=== PATIENT | female | born 1970 | race Caucasian/White ===

== ENCOUNTER 2021-10-16 16:32 | Emergency (ER) | payer MEDICAID ==
[~2021-10-16] VITALS: Ht 149.9 cm; Wt 45.0 kg
[2021-10-16 18:52] LABS: Urine Bacteria NONE SEEN /hpf (None Seen); Urine Blood Negative /uL (Negative); Urine Specific Gravity 1.021 (1.001-1.035); Urine WBC 5 /hpf (0 - 5)
[2021-10-16 19:32] LABS: Hematocrit 41.2 % (36.0-46.0); Hemoglobin 13.7 g/dL (12.2-16.2); Mean Corpuscular Hemoglobin 33.5 pg (28.0-32.0); Mean Corpuscular Hgb Conc. 33.4 g/dL (32.0-36.0); Mean Corpuscular Volume 100.4 fL (80.0-100.0); Red Cell Distribution Width 12.6 % (11.8-14.3); White Blood Cell 8.5 10^3/uL (4.4-10.8)
[2021-10-16 19:35] LABS: Band Neutrophils % (manual) 0; Basophils % (manual) 0 (0.0-2.0); Blast Cells 0; Eosinophils % (manual) 0 (0-7); Metamyelocytes % 0; Myelocytes % 0; Promyelocytes % 0; Reactive Lymphocytes 0
[2021-10-16 19:56] LABS: Potassium 3.9 mmol/L (3.5-5.1)
[2021-10-16 20:02] LABS: Albumin 3.4 g/dL (3.4-5.0); BUN/Creatinine Ratio 36.8; Bilirubin, Total 0.2 mg/dL (0.2-1.0); Calcium 8.4 mg/dL (8.5-10.1); Total Protein 7.4 g/dL (6.4-8.2)
[2021-10-16 22:11] LABS: Lymphocytes % (manual) 52 (10.0-50.0); Monocytes % (manual) 4 (0-12)
[2021-10-16] MEDS ORDERED: SODIUM CHLORIDE 0.9% 1,000 ML IV ONE (23:15)
[2021-10-17 00:59] VITALS: BP 139/76
== END 2021-10-17 03:18 | disposition home or self-care (01) ==
LOC: ER 16:32
DX: R42 Dizziness and giddiness (principal)
CPT/HCPCS: 36415; 80053; 80164; 80185; 80201; 81001; 82553; 83605; 84484; 85007; 85027; 93005

== ENCOUNTER 2022-02-07 20:01 | Emergency (ER) | payer MEDICAID ==
[~2022-02-07] VITALS: Ht 152.4 cm; Wt 70.0 kg
[2022-02-07 20:45] LABS: Hematocrit 41.5 % (36.0-46.0); Hemoglobin 14.3 g/dL (12.2-16.2); Mean Corpuscular Hemoglobin 33.4 pg (28.0-32.0); Mean Corpuscular Hgb Conc. 34.6 g/dL (32.0-36.0); Mean Corpuscular Volume 96.7 fL (80.0-100.0); Red Blood Cells 4.29 10^6/uL (4.0-5.20)
[2022-02-07 20:49] LABS: Basophils % (manual) 0 (0.0-2.0); Blast Cells 0; Eosinophils % (manual) 0 (0-7); Metamyelocytes % 0; Myelocytes % 0; Promyelocytes % 0; Reactive Lymphocytes 0
[2022-02-07 21:02] LABS: Albumin 3.9 g/dL (3.4-5.0); Calcium 8.6 mg/dL (8.5-10.1); Potassium 3.7 mmol/L (3.5-5.1)
[2022-02-07 21:06] LABS: BUN/Creatinine Ratio 25.4; Bilirubin, Total 0.2 mg/dL (0.2-1.0); Total Protein 7.4 g/dL (6.4-8.2)
[2022-02-07] MEDS ORDERED: LEVE500T32 PO (21:12)
[2022-02-07 21:27] LABS: Urine Bacteria NONE SEEN /hpf (None Seen); Urine Blood Negative /uL (Negative); Urine Specific Gravity 1.012 (1.001-1.035); Urine WBC 4 /hpf (0 - 5)
[2022-02-07 21:40] LABS: Alcohol, Urine < 3.0 mg/dL (0-10); Amphetamine Screen, Urine NEGATIVE (NEGATIVE); Barbiturate Scree,Urine NEGATIVE (NEGATIVE); Benzodiazephine Screen, Urine NEGATIVE (NEGATIVE); Cannabinoid Screen, Urine NEGATIVE (NEGATIVE); Cocaine Screen, Urine NEGATIVE (NEGATIVE); Opiate Scree,Urine NEGATIVE (NEGATIVE); Phencyclidine Screen, Urine NEGATIVE (NEGATIVE)
[2022-02-07 21:48] LABS: Band Neutrophils % (manual) 4; Lymphocytes % (manual) 66 (10.0-50.0); Monocytes % (manual) 4 (0-12)
[2022-02-07 22:02] VITALS: BP 151/75
== END 2022-02-07 22:06 | disposition home or self-care (01) ==
LOC: ER 20:01 → EDBD 20:01 → EDUNIT# 20:01 → ER 22:03
DX: R56.9 Unspecified convulsions (principal)
CPT/HCPCS: 36415; 70450; 80053; 80307; 81001; 85007; 85027; 96365; 99284; J1953; J7060

== ENCOUNTER 2022-06-12 05:55 | Inpatient (IN) | payer MEDICAID ==
[~2022-06-12] VITALS: Ht 160 cm; Wt 54.8 kg
[~2022-06-12 05:55] MED LIST: LEVE500T32 PO
[2022-06-12 06:51] LABS: Basophils # (auto) 0 10 ^3/uL (0-0.2); Basophils % (auto) 0.4 % (0.0-2.0); Lymphocytes # (auto) 1.4 10 ^3/uL (0.4-5.4); Monocytes # (auto) 0.3 10 ^3/uL (0-1.3); Neutrophils # (auto) 5.3 10 ^3/uL (1.6-8.6)
[2022-06-12 06:54] LABS: Eosinophils # (auto) 0 10 ^3/uL (0-0.8); Eosinophils % (auto) 0.6 % (0.0-7.0); Hematocrit 44.2 % (36.0-46.0); Hemoglobin 15.4 g/dL (12.2-16.2); Lymphocytes % (auto) 20.2 % (10.0-50.0); Mean Corpuscular Hemoglobin 34.9 pg (28.0-32.0); Mean Corpuscular Hgb Conc. 34.9 g/dL (32.0-36.0); Mean Corpuscular Volume 100.1 fL (80.0-100.0); Monocytes % (auto) 4.8 % (0.0-12.0); Red Blood Cells 4.42 10^6/uL (4.0-5.20); Red Cell Distribution Width 12.5 % (11.8-14.3); White Blood Cell 7.2 10^3/uL (4.4-10.8)
[2022-06-12 07:08] LABS: Albumin 3.6 g/dL (3.4-5.0); BUN/Creatinine Ratio 20.5 (10.0-20.0); Potassium 3.8 mmol/L (3.5-5.1)
[2022-06-12 07:10] LABS: Bilirubin, Total 0.2 mg/dL (0.2-1.0); Total Protein 7.9 g/dL (6.4-8.2)
[2022-06-12 09:06] LABS: Urine Bacteria NONE SEEN /hpf (None Seen); Urine Blood Negative /uL (Negative); Urine Mucus FEW (None Seen); Urine Specific Gravity 1.016 (1.001-1.035); Urine WBC 2 /hpf (0 - 5)
[2022-06-12 09:15] LABS: Alcohol, Urine < 3.0 mg/dL (0-10); Amphetamine Screen, Urine NEGATIVE (NEGATIVE); Barbiturate Scree,Urine NEGATIVE (NEGATIVE); Benzodiazephine Screen, Urine POSITIVE (NEGATIVE); Cannabinoid Screen, Urine NEGATIVE (NEGATIVE)
[2022-06-12 09:22] LABS: Cocaine Screen, Urine NEGATIVE (NEGATIVE); Opiate Scree,Urine NEGATIVE (NEGATIVE); Phencyclidine Screen, Urine NEGATIVE (NEGATIVE)
[2022-06-12] MEDS ORDERED: PHE100C PO (11:29)
[2022-06-12] MEDS ORDERED: DIVA500T13 PO (11:29)
[2022-06-12] MEDS ORDERED: MORPHINE SULFATE INJ 2 MG/ml SYRG IV PRN (11:30)
[2022-06-12] MEDS ORDERED: HYDROcodone-ACET 5/325MG TAB PO PRN (11:30)
[2022-06-12] MEDS ORDERED: ONDANSETRON HCL 4 MG/2 ML VIAL IV PRN (11:30)
[2022-06-12] MEDS ORDERED: ACETAMINOPHEN 325 MG TAB PO PRN (11:30)
[2022-06-12] MEDS ORDERED: DOCUSATE SOD 100 MG CAP PO PRN (11:30)
[2022-06-12] MEDS ORDERED: NITROGLYCERIN 0.4 MG SL TAB SL PRN (11:30)
[2022-06-12] MEDS: SODIUM CHLOR 0.9% PF (SALINE LOCK) 10ML VIAL/SYR IV SCH ×2 (14:35→22:31)
[2022-06-12] MEDS: PHENYTOIN SODIUM 100 MG CAP PO SCH ×2 (14:44→22:31)
[2022-06-12] MEDS ORDERED: LORazepam 2MG/ML-1ML VIAL IV PRN (20:45)
[2022-06-12 22:56] VITALS: BP 148/75
[2022-06-13 05:00] VITALS: BP 143/75
[2022-06-13] MEDS: PHENYTOIN SODIUM 100 MG CAP PO SCH ×3 (05:09→22:47)
[2022-06-13] MEDS: SODIUM CHLOR 0.9% PF (SALINE LOCK) 10ML VIAL/SYR IV SCH ×3 (05:10→22:51)
[2022-06-13 06:12] LABS: Basophils # (auto) 0.1 10 ^3/uL (0-0.2); Eosinophils # (auto) 0 10 ^3/uL (0-0.8); Eosinophils % (auto) 0.1 % (0.0-7.0); Lymphocytes # (auto) 3.7 10 ^3/uL (0.4-5.4); Lymphocytes % (auto) 31.8 % (10.0-50.0)
[2022-06-13 06:15] LABS: Basophils % (auto) 0.7 % (0.0-2.0); Hematocrit 45.5 % (36.0-46.0); Hemoglobin 15.8 g/dL (12.2-16.2); Mean Corpuscular Hemoglobin 34.2 pg (28.0-32.0); Mean Corpuscular Hgb Conc. 34.7 g/dL (32.0-36.0); Mean Corpuscular Volume 98.7 fL (80.0-100.0); Monocytes # (auto) 0.4 10 ^3/uL (0-1.3); Monocytes % (auto) 3.8 % (0.0-12.0); Neutrophils # (auto) 7.5 10 ^3/uL (1.6-8.6); Neutrophils % (auto) 63.6 % (37.0-80.0); Nucleated Red Blood Cells % 0.1 %; Red Cell Distribution Width 12.4 % (11.8-14.3); White Blood Cell 11.8 10^3/uL (4.4-10.8)
[2022-06-13 06:26] LABS: Potassium 4.2 mmol/L (3.5-5.1)
[2022-06-13 06:33] LABS: Albumin 3.7 g/dL (3.4-5.0); BUN/Creatinine Ratio 29.4 (10.0-20.0); Bilirubin, Total 0.4 mg/dL (0.2-1.0); Calcium 9.1 mg/dL (8.5-10.1); Total Protein 8.2 g/dL (6.4-8.2)
[2022-06-13 08:00] VITALS: BP 134/74
[2022-06-13] MEDS ORDERED: PANTOPRAZOLE 40 MG/10 ML VIAL INJ IV SCH (10:00)
[2022-06-13 12:00] VITALS: BP 139/82
[2022-06-13 16:00] VITALS: BP 124/65
[2022-06-13 22:00] VITALS: BP 120/70
[2022-06-14 05:00] VITALS: BP 140/65
[2022-06-14] MEDS: PHENYTOIN SODIUM 100 MG CAP PO SCH ×3 (06:07→21:42)
[2022-06-14] MEDS: SODIUM CHLOR 0.9% PF (SALINE LOCK) 10ML VIAL/SYR IV SCH ×3 (06:10→22:00)
[2022-06-14 08:00] VITALS: BP 135/71
[2022-06-14 11:15] VITALS: BP 135/71
[2022-06-14 12:00] VITALS: BP 138/76
[2022-06-14 16:00] VITALS: BP 137/71
[2022-06-14 22:00] VITALS: BP 154/82
[2022-06-15 05:17] VITALS: BP 134/59
[2022-06-15] MEDS: SODIUM CHLOR 0.9% PF (SALINE LOCK) 10ML VIAL/SYR IV SCH (05:31)
[2022-06-15] MEDS: PHENYTOIN SODIUM 100 MG CAP PO SCH (05:31)
[2022-06-15 08:30] VITALS: BP 114/68
== END 2022-06-15 08:48 | disposition home or self-care (01) | DRG 53 ==
LOC: ER 05:55 → EDBD 05:55 → TELE 11:28 → TELE-CENTR 21:45
PROVIDERS: ADMIT Nurse Practitioner Family; ATTEND Internal Medicine
DX: G40.409 Other generalized epilepsy and epileptic syndromes, not intractable, without status epilepticus (principal); Z79.899 Other long term (current) drug therapy; Z82.49 Family history of ischemic heart disease and other diseases of the circulatory system; Z83.3 Family history of diabetes mellitus
CPT/HCPCS: 36415; 70450; 80053; 80164; 80185; 80307; 81001; 82306; 83880; 84484; 84702; 85025; C9113; G0378

== ENCOUNTER 2022-07-25 16:19 | Inpatient (IN) | payer MEDICAID ==
[~2022-07-25] VITALS: Ht 165.1 cm; Wt 55.5 kg
[~2022-07-25 16:19] MED LIST changes: +DIVA500T13 PO; -LEVE500T32 PO; +PHEN1CAP60 PO
[2022-07-25] MEDS ORDERED: LORazepam 2MG/ML-1ML VIAL ONE (16:35)
[2022-07-25] MEDS ORDERED: LORazepam 2MG/ML-1ML VIAL IV ONE (16:45)
[2022-07-25 17:35] LABS: Basophils # (auto) 0 10 ^3/uL (0-0.2); Basophils % (auto) 0.4 % (0.0-2.0); Eosinophils # (auto) 0 10 ^3/uL (0-0.8); Eosinophils % (auto) 0.9 % (0.0-7.0); Hematocrit 41.2 % (36.0-46.0); Lymphocytes % (auto) 37.9 % (10.0-50.0); Mean Corpuscular Hemoglobin 33.8 pg (28.0-32.0); Mean Corpuscular Hgb Conc. 33.8 g/dL (32.0-36.0); Mean Corpuscular Volume 99.9 fL (80.0-100.0); Monocytes # (auto) 0.4 10 ^3/uL (0-1.3); Monocytes % (auto) 7.6 % (0.0-12.0); Neutrophils # (auto) 2.8 10 ^3/uL (1.6-8.6); Neutrophils % (auto) 53.2 % (37.0-80.0); Nucleated Red Blood Cells % 0.1 %; Red Blood Cells 4.13 10^6/uL (4.0-5.20); Red Cell Distribution Width 12.2 % (11.8-14.3); White Blood Cell 5.2 10^3/uL (4.4-10.8)
[2022-07-25] MEDS ORDERED: ATOG60TA PO (17:54)
[2022-07-25 18:18] LABS: Albumin 3.7 g/dL (3.4-5.0); Anion Gap 4 (5-15); Blood Alcohol < 3.0 mg/dL (0-5); Blood Urea Nitrogen 16 mg/dL (7-18); Calcium 8.2 mg/dL (8.5-10.1); Carbon Dioxide 30 mmol/L (21-32); Chloride 107 mmol/L (98-107); Glucose 93 mg/dL (74-106); Magnesium 2.2 mg/dL (1.6-2.6); Potassium 4.2 mmol/L (3.5-5.1); Sodium 141 mmol/L (136-145)
[2022-07-25 18:23] LABS: Alanine Aminotransferase 40 U/L (13-56); Alkaline Phosphatase 70 U/L (45-117); Aspartate Aminotransferase 22 U/L (15-37); BUN/Creatinine Ratio 25.4 (10.0-20.0); Bilirubin, Total 0.2 mg/dL (0.2-1.0); Creatine Kinase IFCC 58 U/L (26-192); GFR African American 129 mL/min; GFR Non-African American 106 mL/min; Total Protein 7.3 g/dL (6.4-8.2)
[2022-07-25] MEDS ORDERED: ACETAMINOPHEN 325 MG TAB PO PRN (21:30)
[2022-07-25] MEDS ORDERED: MORPHINE SULFATE INJ 2 MG/ml SYRG IV PRN (21:30)
[2022-07-25] MEDS ORDERED: NITROGLYCERIN 0.4 MG SL TAB SL PRN (21:30)
[2022-07-25 21:50] LABS: Urine Bacteria NONE SEEN /hpf (None Seen); Urine Blood Negative /uL (Negative); Urine Specific Gravity 1.014 (1.001-1.035); Urine WBC 1 /hpf (0 - 5)
[2022-07-25] MEDS ORDERED: LACTULOSE 20Gm/30ML SOLN PO ONE ×2 (22:00→22:30)
[2022-07-25] MEDS: SODIUM CHLORIDE 0.9% 1,000 ML IV SCH (22:30)
[2022-07-26 04:16] VITALS: BP 118/75
[2022-07-26] MEDS: SODIUM CHLORIDE 0.9% 1,000 ML IV SCH ×2 (05:50→16:52)
[2022-07-26 06:31] LABS: Basophils # (auto) 0 10 ^3/uL (0-0.2); Eosinophils # (auto) 0 10 ^3/uL (0-0.8); Monocytes # (auto) 0.6 10 ^3/uL (0-1.3); Neutrophils # (auto) 4.6 10 ^3/uL (1.6-8.6)
[2022-07-26 06:34] LABS: Basophils % (auto) 0.4 % (0.0-2.0); Eosinophils % (auto) 0.5 % (0.0-7.0); Hematocrit 40.5 % (36.0-46.0); Hemoglobin 14.1 g/dL (12.2-16.2); Lymphocytes # (auto) 2.7 10 ^3/uL (0.4-5.4); Lymphocytes % (auto) 34.5 % (10.0-50.0); Mean Corpuscular Hemoglobin 34.5 pg (28.0-32.0); Mean Corpuscular Hgb Conc. 34.9 g/dL (32.0-36.0); Mean Corpuscular Volume 98.8 fL (80.0-100.0); Neutrophils % (auto) 57.6 % (37.0-80.0); Red Cell Distribution Width 12.1 % (11.8-14.3); White Blood Cell 7.9 10^3/uL (4.4-10.8)
[2022-07-26 06:46] LABS: Calcium 8.5 mg/dL (8.5-10.1); Potassium 3.8 mmol/L (3.5-5.1)
[2022-07-26 06:51] LABS: Albumin 3.5 g/dL (3.4-5.0); BUN/Creatinine Ratio 20.3 (10.0-20.0); Bilirubin, Total 0.2 mg/dL (0.2-1.0); Total Protein 7.2 g/dL (6.4-8.2)
[2022-07-26 08:05] VITALS: BP 148/79
[2022-07-26 09:10] VITALS: BP 148/79
[2022-07-26] MEDS: LACTULOSE 20Gm/30ML SOLN PO SCH ×2 (09:44→23:10)
[2022-07-26] MEDS: ENOXAPARIN SOD 40 MG/0.4 ML SYRINGE SC SCH (09:44)
[2022-07-26 17:00] VITALS: BP 133/70
[2022-07-26] MEDS ORDERED: LORazepam 2MG/ML-1ML VIAL IV PRN (21:00)
[2022-07-26 22:00] VITALS: BP 132/78
[2022-07-26] MEDS: PHENYTOIN SODIUM 100 MG CAP PO SCH (23:10)
[2022-07-27 05:00] VITALS: BP 138/93
[2022-07-27] MEDS: SODIUM CHLORIDE 0.9% 1,000 ML IV SCH ×2 (05:17→08:03)
[2022-07-27] MEDS: PHENYTOIN SODIUM 100 MG CAP PO SCH (05:48)
[2022-07-27 08:00] VITALS: BP 144/81
[2022-07-27 09:00] VITALS: BP 144/81
[2022-07-27] MEDS ORDERED: QULIPTA 60 MG PO SCH (10:00)
[2022-07-27] MEDS: ENOXAPARIN SOD 40 MG/0.4 ML SYRINGE SC SCH (10:11)
[2022-07-27] MEDS: LACTULOSE 20Gm/30ML SOLN PO SCH (10:11)
[2022-07-27 10:39] VITALS: BP 144/81
== END 2022-07-27 12:20 | disposition home or self-care (01) | DRG 53 ==
LOC: EDBD 16:19 → EDUNIT# 16:19 → ER 16:19 → TELE 21:29 → TELE-EAST 07-26 03:40
PROVIDERS: ADMIT Nurse Practitioner Family; ATTEND Hospitalist
DX: G40.909 Epilepsy, unspecified, not intractable, without status epilepticus (principal); E72.20 Disorder of urea cycle metabolism, unspecified; G43.909 Migraine, unspecified, not intractable, without status migrainosus; R91.1 Solitary pulmonary nodule; Z79.899 Other long term (current) drug therapy; Z82.49 Family history of ischemic heart disease and other diseases of the circulatory system; Z83.3 Family history of diabetes mellitus
CPT/HCPCS: 36415; 70450; 71045; 80053; 80185; 80320; 81001; 82140; 82550; 83605; 83735; 83880; 84484; 84702; 85025; 87040; 93005; 96374; 97163; 99291; G0378; J7060

== ENCOUNTER 2022-10-15 17:17 | Inpatient (IN) | payer MEDICAID ==
[2022-10-15] VITALS (10 sets, daily range): BP systolic 123–143; BP diastolic 69–84; PULSE 94–113; RESP 18–20; TEMP 98.6–100.1; O2SAT 97–100
[~2022-10-15] VITALS: Ht 152.4 cm; Wt 54.6 kg
[~2022-10-15 17:17] MED LIST changes: +ATOG60TA PO
[2022-10-15] MEDS ORDERED: ETOMIDATE (2MG/ML) 20ML VIAL IV ONE ×2 (17:23→17:30)
[2022-10-15] MEDS ORDERED: MIDAZOLAM DRIP 50 mg/50mL 50 ML IV ONE (17:23)
[2022-10-15] MEDS ORDERED: SUCCINYLCHOLINE CHLORIDE 20 MG/ML 10ML VIAL IV ONE ×2 (17:23→17:30)
[2022-10-15] MEDS ORDERED: SODIUM CHLORIDE 0.9% 1,800 ML IV ONE (17:45)
[2022-10-15] MEDS: MIDAZOLAM DRIP 50 mg/50mL 50 ML IV SCH (17:54)
[2022-10-15] MEDS ORDERED: VANCOMYCIN 1GM/250ML 250 ML IV ONE (18:30)
[2022-10-15] MEDS ORDERED: PIPERACILLIN-TAZO 4.5GM 100 ML IV ONE (18:30)
[2022-10-15 18:38] LABS: Base Excess -1.9 mmol/L (-2.0-2.0)
[2022-10-15 18:52] LABS: Amphetamine Screen, Urine Neg (NEGATIVE)
[2022-10-15 18:53] LABS: Lactic Acid w/Reflex 3.9 mmol/L (0.4-2.0)
[2022-10-15 18:53] LABS: Barbiturate Scree,Urine Neg (NEGATIVE); Benzodiazephine Screen, Urine Pos (NEGATIVE); Cocaine Screen, Urine Neg (NEGATIVE)
[2022-10-15 18:54] LABS: Alanine Aminotransferase 65 U/L (7-40); Albumin 4.5 g/dL (3.2-4.8); Alkaline Phosphatase 66 U/L (46-116); Anion Gap 12.3 (5-15); Aspartate Aminotransferase 58 U/L (13-40); BUN/Creatinine Ratio 17.8 (10.0-20.0); Blood Urea Nitrogen 13 mg/dL (9-23); Calcium 9.3 mg/dL (8.5-10.1); Carbon Dioxide 22.7 mmol/L (20-30); Chloride 105 mmol/L (98-107); Glucose 118 mg/dL (74-106); Potassium 4.2 mmol/L (3.5-5.1); Sodium 140 mmol/L (136-145)
[2022-10-15 18:54] LABS: Cannabinoid Screen, Urine Neg (NEGATIVE); Opiate Scree,Urine Neg (NEGATIVE); Phencyclidine Screen, Urine Neg (NEGATIVE)
[2022-10-15 18:55] LABS: Bilirubin, Total 0.3 mg/dL (0.2-1.0); Total Protein 7.7 g/dL (5.7-8.2)
[2022-10-15 18:56] LABS: Basophils # (auto) 0 10 ^3/uL (0-0.2); Eosinophils # (auto) 0 10 ^3/uL (0-0.8); Eosinophils % (auto) 0.1 % (0.0-7.0); Lymphocytes # (auto) 0.6 10 ^3/uL (0.4-5.4); Monocytes # (auto) 0.5 10 ^3/uL (0-1.3)
[2022-10-15 19:00] LABS: Basophils % (auto) 0.4 % (0.0-2.0); Hemoglobin 14.3 g/dL (12.2-16.2); Lymphocytes % (auto) 6.5 % (10.0-50.0); Mean Corpuscular Hemoglobin 34.6 pg (28.0-32.0); Mean Corpuscular Hgb Conc. 34.9 g/dL (32.0-36.0); Mean Corpuscular Volume 99.1 fL (80.0-100.0); Monocytes % (auto) 5.2 % (0.0-12.0); Neutrophils # (auto) 7.9 10 ^3/uL (1.6-8.6); Neutrophils % (auto) 87.8 % (37.0-80.0); Nucleated Red Blood Cells % 0.2 %; Red Blood Cells 4.14 10^6/uL (4.0-5.20); Red Cell Distribution Width 12.4 % (11.8-14.3)
[2022-10-15 19:22] LABS: Urine Bacteria NONE SEEN /hpf (None Seen); Urine Blood Negative /uL (Negative); Urine Clarity Clear (Clear); Urine Color Colorless (Yellow); Urine Hyaline Cast FEW /lpf (0 - 2); Urine Mucus FEW (None Seen); Urine Protein, UAD 3+ (Negative); Urine Specific Gravity 1.016 (1.001-1.035); Urine Urobilinogen Normal (Negative); Urine WBC <1 /hpf (0 - 5)
[2022-10-15 19:26] LABS: Valproic Acid (Depakene) 74.7 ug/mL (50-100)
[2022-10-15] MEDS ORDERED: ASPirin 300 MG RECTAL SUPP PR ONE (19:30)
[2022-10-15 19:42] LABS: INR 1.09 (0.9-1.15); Prothrombin Time 11.4 sec (9.3-11.8)
[2022-10-15 20:40] LABS: Lipase 34 U/L (12-53)
[2022-10-15] MEDS ORDERED: LORazepam 2MG/ML-1ML VIAL IV PRN (20:45)
[2022-10-15] MEDS ORDERED: NITROGLYCERIN 0.4 MG SL TAB SL PRN (21:00)
[2022-10-15] MEDS ORDERED: MORPHINE SULFATE INJ 2 MG/ml SYRG IV PRN (21:00)
[2022-10-15] MEDS ORDERED: ENOXAPARIN SOD 60 MG/0.6 ML SYRINGE SC ONE (21:15)
[2022-10-15] MEDS ORDERED: DEXTROSE (50%) 50ML SYRG IV PRN (21:15)
[2022-10-15] MEDS: SODIUM CHL 0.9% IV SCH (21:33)
[2022-10-15] MEDS: PHENYTOIN DILANTIN IV SCH (21:33)
[2022-10-15] MEDS: VALPROATE INJ 500 MG in SODIUM CHL 0.9% 100 ML IV SCH (21:40)
[2022-10-15] MEDS: SODIUM CHLORIDE 0.9% 1,000 ML IV SCH (21:41)
[2022-10-15] MEDS: ENOXAPARIN SOD 60 MG/0.6 ML SYRINGE SC SCH (22:00)
[2022-10-15] MEDS ORDERED: ENOXAPARIN SOD 120 MG/0.8 ML SYRINGE SC SCH (22:00)
[2022-10-15] MEDS: IPRATROPIUM BROM 0.5 MG/2.5ML INH SOL NEB PRN (22:25)
[2022-10-15] MEDS: ALBUTEROL SULF 2.5 MG/0.5ML(0.5%) NEB SOLN NEB PRN (22:25)
[2022-10-16] VITALS (105 sets, daily range): BP systolic 104–151; BP diastolic 38–127; PULSE 86–120; RESP 14–28; TEMP 100–103.1; O2SAT 94–100
[2022-10-16] MEDS: MIDAZOLAM DRIP 50 mg/50mL 50 ML IV SCH ×4 (00:54→22:24)
[2022-10-16] MEDS: ACETAMINOPHEN 325 MG TAB PO PRN ×4 (01:09→21:58)
[2022-10-16] MEDS: ALBUTEROL SULF 2.5 MG/0.5ML(0.5%) NEB SOLN NEB PRN (02:03)
[2022-10-16] MEDS: IPRATROPIUM BROM 0.5 MG/2.5ML INH SOL NEB PRN (02:03)
[2022-10-16] MEDS: VALPROATE INJ 500 MG in SODIUM CHL 0.9% 100 ML IV SCH ×4 (02:42→21:09)
[2022-10-16 04:09] LABS: Basophils # (auto) 0.1 10 ^3/uL (0-0.2); Eosinophils # (auto) 0 10 ^3/uL (0-0.8); Monocytes # (auto) 1.3 10 ^3/uL (0-1.3); White Blood Cell 11.9 10^3/uL (4.4-10.8)
[2022-10-16 04:12] LABS: Basophils % (auto) 0.6 % (0.0-2.0); Eosinophils % (auto) 0.1 % (0.0-7.0); Hematocrit 44.1 % (36.0-46.0); Lymphocytes # (auto) 2.1 10 ^3/uL (0.4-5.4); Lymphocytes % (auto) 17.7 % (10.0-50.0); Mean Corpuscular Hemoglobin 34.6 pg (28.0-32.0); Mean Corpuscular Volume 101.6 fL (80.0-100.0); Monocytes % (auto) 10.8 % (0.0-12.0); Neutrophils # (auto) 8.4 10 ^3/uL (1.6-8.6); Neutrophils % (auto) 70.8 % (37.0-80.0); Nucleated Red Blood Cells % 0.1 %; Red Blood Cells 4.34 10^6/uL (4.0-5.20); Red Cell Distribution Width 12.4 % (11.8-14.3)
[2022-10-16 04:27] LABS: Alanine Aminotransferase 64 U/L (7-40); Alkaline Phosphatase 59 U/L (46-116); Anion Gap 10.5 (5-15); Aspartate Aminotransferase 79 U/L (13-40); Calcium 8.7 mg/dL (8.5-10.1); Carbon Dioxide 24.5 mmol/L (20-30); Chloride 103 mmol/L (98-107); Glucose 107 mg/dL (74-106); LDL Cholesterol 56 mg/dL (< 100); Potassium 3.7 mmol/L (3.5-5.1); Sodium 138 mmol/L (136-145); Triglycerides 101 mg/dL (< 150)
[2022-10-16 04:28] LABS: Albumin 4.4 g/dL (3.2-4.8); Bilirubin, Total 0.5 mg/dL (0.2-1.0); Cholesterol 163 mg/dL (< 200); HDL Cholesterol 84 mg/dL (40-59); Total Protein 7.8 g/dL (5.7-8.2)
[2022-10-16 04:31] LABS: BUN/Creatinine Ratio 7.7 (10.0-20.0); Blood Urea Nitrogen < 5 mg/dL (9-23)
[2022-10-16] MEDS: SODIUM CHL 0.9% IV SCH ×3 (04:44→20:32)
[2022-10-16] MEDS: PHENYTOIN DILANTIN IV SCH ×3 (04:44→20:32)
[2022-10-16] MEDS: InsuLIN REG 1unit/0.01ml Soln (100units/ml) SC SCH ×5 (06:00→23:59)
[2022-10-16] MEDS: ACCU-CHEK COMFORT CURVE STRIP VI SCH ×5 (06:16→23:59)
[2022-10-16] MEDS: SODIUM CHLORIDE 0.9% 1,000 ML IV SCH ×2 (06:34→10:45)
[2022-10-16 06:57] LABS: Base Excess 0.6 mmol/L (-2.0-2.0)
[2022-10-16] MEDS: PANTOPRAZOLE 40 MG/10 ML VIAL INJ IV SCH (09:45)
[2022-10-16] MEDS: ENOXAPARIN SOD 60 MG/0.6 ML SYRINGE SC SCH ×2 (09:45→10:00)
[2022-10-16] MEDS: levoFLOXacin 500MG 100 ML IV SCH (13:32)
[2022-10-16] MEDS ORDERED: IODIXANOL 320MG/ML 100ML BTL IV ONE (13:52)
[2022-10-16] MEDS ORDERED: LIDOCAINE 2%HCL (LOCAL ANESTH.) INJ 20ML MDV ONE (13:52)
[2022-10-16] MEDS ORDERED: HEPARIN SODIUM (PORCINE) 5000 UNITS/ML 1ML VIAL ONE (14:00)
[2022-10-16] MEDS ORDERED: VERAPAMIL 2.5MG/ML INJ 2ML VIAL IV ONE (14:00)
[2022-10-16] MEDS ORDERED: fentaNYL CITRATE 100 MCG/2 ML VL ONE (15:04)
[2022-10-16] MEDS ORDERED: fentaNYL Drip 2500mCg/250mlNS 250 ML IV ONE (21:13)
[2022-10-16] MEDS: fentaNYL Drip 2500mCg/250mlNS 250 ML IV SCH (21:28)
[2022-10-17] VITALS (108 sets, daily range): BP systolic 91–150; BP diastolic 34–89; PULSE 79–139; RESP 12–32; TEMP 97.9–99.1; O2SAT 96–100
[2022-10-17] MEDS: SODIUM CHLORIDE 0.9% 1,000 ML IV SCH (00:26)
[2022-10-17] MEDS: MIDAZOLAM DRIP 50 mg/50mL 50 ML IV SCH ×7 (02:04→23:23)
[2022-10-17] MEDS: VALPROATE INJ 500 MG in SODIUM CHL 0.9% 100 ML IV SCH ×4 (02:42→20:22)
[2022-10-17] MEDS ORDERED: IBUPROFEN 100MG/5ML ORAL SUSP 100 MG/5 ML UD GT ONE (03:15)
[2022-10-17] MEDS: ACETAMINOPHEN 325 MG TAB PO PRN (03:33)
[2022-10-17 04:34] LABS: Basophils # (auto) 0 10 ^3/uL (0-0.2); Basophils % (auto) 0.3 % (0.0-2.0); Chloride 108 mmol/L (98-107); Eosinophils # (auto) 0 10 ^3/uL (0-0.8); Hematocrit 41.2 % (36.0-46.0); Hemoglobin 14.2 g/dL (12.2-16.2); Lymphocytes # (auto) 1.9 10 ^3/uL (0.4-5.4); Lymphocytes % (auto) 13.3 % (10.0-50.0); Mean Corpuscular Hemoglobin 33.9 pg (28.0-32.0); Mean Corpuscular Hgb Conc. 34.4 g/dL (32.0-36.0); Mean Corpuscular Volume 98.4 fL (80.0-100.0); Monocytes # (auto) 0.8 10 ^3/uL (0-1.3); Monocytes % (auto) 5.9 % (0.0-12.0); Neutrophils # (auto) 11.5 10 ^3/uL (1.6-8.6); Neutrophils % (auto) 80.5 % (37.0-80.0); Nucleated Red Blood Cells % 0.1 %; Potassium 3.8 mmol/L (3.5-5.1); Red Blood Cells 4.19 10^6/uL (4.0-5.20); Red Cell Distribution Width 12.6 % (11.8-14.3); Sodium 141 mmol/L (136-145); White Blood Cell 14.3 10^3/uL (4.4-10.8)
[2022-10-17 04:35] LABS: Anion Gap 8.5 (5-15); Calcium 8.5 mg/dL (8.7-10.4); Carbon Dioxide 24.5 mmol/L (20-30)
[2022-10-17 04:40] LABS: Glucose 99 mg/dL (74-106)
[2022-10-17 04:45] LABS: BUN/Creatinine Ratio 11.1 (10.0-20.0); Blood Urea Nitrogen < 5 mg/dL (9-23)
[2022-10-17] MEDS: SODIUM CHL 0.9% IV SCH ×3 (04:45→21:42)
[2022-10-17] MEDS: PHENYTOIN DILANTIN IV SCH ×3 (04:45→21:42)
[2022-10-17] MEDS: InsuLIN REG 1unit/0.01ml Soln (100units/ml) SC SCH ×4 (06:00→23:24)
[2022-10-17] MEDS: ACCU-CHEK COMFORT CURVE STRIP VI SCH ×4 (06:00→23:24)
[2022-10-17 06:44] LABS: Base Excess 0.3 mmol/L (-2.0-2.0)
[2022-10-17] MEDS ORDERED: VANCOMYCIN PER PHARMACY 0 MG IV SCH (09:15)
[2022-10-17] MEDS ORDERED: VANCOMYCIN 1GM/250ML 250 ML IV ONE (09:30)
[2022-10-17] MEDS: D5W/SOD CHL 0.45% 1,000 ML IV SCH ×2 (11:04→20:22)
[2022-10-17] MEDS: PANTOPRAZOLE 40 MG/10 ML VIAL INJ IV SCH (11:05)
[2022-10-17] MEDS: levoFLOXacin 500MG 100 ML IV SCH (11:05)
[2022-10-17] MEDS: fentaNYL Drip 2500mCg/250mlNS 250 ML IV SCH ×2 (12:24→23:24)
[2022-10-17 13:02] LABS: Rapid Influenza A Negative (Negative); Rapid Influenza B Negative (Negative)
[2022-10-17 17:20] LABS: Protein, CSF 21.4 mg/dL (15-45)
[2022-10-17 17:28] LABS: CSF White Blood Cells 0 CUMM (0-5); Description,CSF CLEAR
[2022-10-17] MEDS ORDERED: PROPOFOL 100 ML IV ONE (19:27)
[2022-10-17] MEDS: PROPOFOL 100 ML IV SCH (19:56)
[2022-10-18] VITALS (100 sets, daily range): BP systolic 82–156; BP diastolic 34–84; PULSE 73–126; RESP 11–26; TEMP 97–102.7; O2SAT 93–100
[2022-10-18] MEDS ORDERED: VANCOMYCIN 750mg/250ml 250 ML IV SCH (01:00)
[2022-10-18] MEDS: VALPROATE INJ 500 MG in SODIUM CHL 0.9% 100 ML IV SCH ×4 (02:28→20:16)
[2022-10-18] MEDS: PHENYTOIN DILANTIN IV SCH ×3 (04:43→21:38)
[2022-10-18] MEDS: SODIUM CHL 0.9% IV SCH ×3 (04:43→21:38)
[2022-10-18] MEDS: MIDAZOLAM DRIP 50 mg/50mL 50 ML IV SCH ×4 (04:43→21:50)
[2022-10-18 04:44] LABS: Basophils # (auto) 0 10 ^3/uL (0-0.2); Basophils % (auto) 0.3 % (0.0-2.0); Eosinophils # (auto) 0 10 ^3/uL (0-0.8); Hematocrit 34.9 % (36.0-46.0); Hemoglobin 11.8 g/dL (12.2-16.2); Lymphocytes # (auto) 0.7 10 ^3/uL (0.4-5.4); Lymphocytes % (auto) 11.5 % (10.0-50.0); Mean Corpuscular Hemoglobin 33.5 pg (28.0-32.0); Mean Corpuscular Hgb Conc. 33.9 g/dL (32.0-36.0); Mean Corpuscular Volume 98.6 fL (80.0-100.0); Monocytes # (auto) 0.4 10 ^3/uL (0-1.3); Monocytes % (auto) 5.5 % (0.0-12.0); Neutrophils # (auto) 5.3 10 ^3/uL (1.6-8.6); Neutrophils % (auto) 82.7 % (37.0-80.0); Nucleated Red Blood Cells % 0.1 %; Red Blood Cells 3.54 10^6/uL (4.0-5.20); Red Cell Distribution Width 12.2 % (11.8-14.3); White Blood Cell 6.5 10^3/uL (4.4-10.8)
[2022-10-18 04:57] LABS: Alanine Aminotransferase 110 U/L (7-40); Albumin 2.8 g/dL (3.2-4.8); Alkaline Phosphatase 44 U/L (46-116); Anion Gap 7.4 (5-15); Aspartate Aminotransferase 161 U/L (13-40); BUN/Creatinine Ratio 17.6 (10.0-20.0); Blood Urea Nitrogen 6 mg/dL (9-23); Calcium 7.8 mg/dL (8.7-10.4); Carbon Dioxide 23.6 mmol/L (20-30); Chloride 105 mmol/L (98-107); Glucose 111 mg/dL (74-106); INR 1.21 (0.9-1.15); Partial Thromboplastin Time 36.7 SEC (24.5-34.5); Prothrombin Time 12.5 sec (9.3-11.8)
[2022-10-18 04:58] LABS: Bilirubin, Total 0.4 mg/dL (0.2-1.0); Total Protein 5.1 g/dL (5.7-8.2)
[2022-10-18] MEDS: D5W/SOD CHL 0.45% 1,000 ML IV SCH ×2 (05:09→14:02)
[2022-10-18 05:58] LABS: Sodium 136 mmol/L (136-145)
[2022-10-18] MEDS: InsuLIN REG 1unit/0.01ml Soln (100units/ml) SC SCH ×4 (06:00→23:55)
[2022-10-18 06:01] LABS: Potassium 2.9 mmol/L (3.5-5.1)
[2022-10-18] MEDS: ACCU-CHEK COMFORT CURVE STRIP VI SCH ×4 (06:16→23:55)
[2022-10-18 07:37] LABS: Base Excess -1.3 mmol/L (-2.0-2.0)
[2022-10-18] MEDS ORDERED: REMDESIVIR PER PHARMACY 0 ML IV SCH (09:30)
[2022-10-18] MEDS: PANTOPRAZOLE 40 MG/10 ML VIAL INJ IV SCH (09:49)
[2022-10-18] MEDS: ASCORBIC ACID 500 MG TAB PO SCH (09:49)
[2022-10-18] MEDS: ACETAMINOPHEN 325 MG TAB PO PRN ×2 (09:49→16:37)
[2022-10-18] MEDS: DexAMETHasone SOD PHOS 10MG/1ML VIAL INJ IV SCH (09:49)
[2022-10-18] MEDS: CHOLECALCIFEROL (VITD3) 2,000 UNIT CAP/TAB PO SCH (09:50)
[2022-10-18] MEDS: ZINC SULFATE 220mg CAP or TAB PO SCH (09:50)
[2022-10-18] MEDS: fentaNYL Drip 2500mCg/250mlNS 250 ML IV SCH (10:41)
[2022-10-18] MEDS: levoFLOXacin 500MG 100 ML IV SCH (10:52)
[2022-10-18] MEDS: POTASSIUM CHL 20MEQ/100ML 100 ML IV SCH ×3 (10:59→19:13)
[2022-10-18 11:23] LABS: Platelet Estimate Decreased
[2022-10-18] MEDS ORDERED: REMDESIVIR 200 MG in NS 210ml LOADING DOSE ADULT IV ONE (13:00)
[2022-10-18] MEDS: PROPOFOL 100 ML IV SCH (19:30)
[2022-10-19] VITALS (88 sets, daily range): BP systolic 80–155; BP diastolic 28–104; PULSE 70–125; RESP 13–29; TEMP 98.1–100.2; O2SAT 93–100
[2022-10-19] MEDS: D5W/SOD CHL 0.45% 1,000 ML IV SCH ×3 (01:15→21:15)
[2022-10-19] MEDS: VALPROATE INJ 500 MG in SODIUM CHL 0.9% 100 ML IV SCH ×4 (02:08→21:30)
[2022-10-19] MEDS: ACETAMINOPHEN 325 MG TAB PO PRN (02:14)
[2022-10-19] MEDS: SODIUM CHL 0.9% IV SCH ×3 (04:44→20:48)
[2022-10-19] MEDS: PHENYTOIN DILANTIN IV SCH ×3 (04:44→20:48)
[2022-10-19 04:48] LABS: Basophils # (auto) 0 10 ^3/uL (0-0.2); Basophils % (auto) 0.3 % (0.0-2.0); Eosinophils # (auto) 0 10 ^3/uL (0-0.8); Eosinophils % (auto) 0.1 % (0.0-7.0); Hematocrit 34.5 % (36.0-46.0); Hemoglobin 11.7 g/dL (12.2-16.2); Lymphocytes # (auto) 1.2 10 ^3/uL (0.4-5.4); Lymphocytes % (auto) 21.2 % (10.0-50.0); Mean Corpuscular Hemoglobin 33.5 pg (28.0-32.0); Mean Corpuscular Hgb Conc. 33.9 g/dL (32.0-36.0); Mean Corpuscular Volume 98.9 fL (80.0-100.0); Monocytes # (auto) 0.4 10 ^3/uL (0-1.3); Monocytes % (auto) 6.3 % (0.0-12.0); Neutrophils # (auto) 4.1 10 ^3/uL (1.6-8.6); Neutrophils % (auto) 72.1 % (37.0-80.0); Red Blood Cells 3.48 10^6/uL (4.0-5.20); Red Cell Distribution Width 12.4 % (11.8-14.3); White Blood Cell 5.6 10^3/uL (4.4-10.8)
[2022-10-19 05:02] LABS: Alanine Aminotransferase 74 U/L (7-40); Albumin 2.8 g/dL (3.2-4.8); Alkaline Phosphatase 59 U/L (46-116); Anion Gap 6.7 (5-15); Aspartate Aminotransferase 102 U/L (13-40); Calcium 7.9 mg/dL (8.7-10.4); Carbon Dioxide 24.3 mmol/L (20-30); Chloride 105 mmol/L (98-107); Glucose 131 mg/dL (74-106); Magnesium 1.5 mg/dL (1.6-2.6); Sodium 136 mmol/L (136-145)
[2022-10-19 05:03] LABS: Bilirubin, Total 0.4 mg/dL (0.2-1.0); Total Protein 5.1 g/dL (5.7-8.2)
[2022-10-19 05:12] LABS: BUN/Creatinine Ratio 12.5 (10.0-20.0); Blood Urea Nitrogen < 5 mg/dL (9-23)
[2022-10-19] MEDS: InsuLIN REG 1unit/0.01ml Soln (100units/ml) SC SCH ×4 (05:38→23:30)
[2022-10-19] MEDS: ACCU-CHEK COMFORT CURVE STRIP VI SCH ×4 (05:38→23:29)
[2022-10-19] MEDS: NOREPINEPHRINE 8 MG/250ML KIT 250 ML IV SCH (06:15)
[2022-10-19] MEDS: POTASSIUM CHL 20MEQ/100ML 100 ML IV SCH ×3 (06:41→11:43)
[2022-10-19] MEDS: levoFLOXacin 500MG 100 ML IV SCH (08:42)
[2022-10-19] MEDS: CHOLECALCIFEROL (VITD3) 2,000 UNIT CAP/TAB PO SCH (08:42)
[2022-10-19] MEDS: ZINC SULFATE 220mg CAP or TAB PO SCH (08:42)
[2022-10-19] MEDS: PANTOPRAZOLE 40 MG/10 ML VIAL INJ IV SCH (08:42)
[2022-10-19] MEDS: ASCORBIC ACID 500 MG TAB PO SCH (08:43)
[2022-10-19] MEDS: DexAMETHasone SOD PHOS 10MG/1ML VIAL INJ IV SCH (08:43)
[2022-10-19 08:54] LABS: Base Excess 2.7 mmol/L (-2.0-2.0)
[2022-10-19 13:17] LABS: Base Excess 2.9 mmol/L (-2.0-2.0)
[2022-10-19] MEDS ORDERED: DexAMETHasone SOD PHOS 4 MG/1ML SDV INJ IV ONE (13:45)
[2022-10-19] MEDS ORDERED: EPINEPHrine HCL 0.5 ML NEB NEB ONE (13:45)
[2022-10-19] MEDS ORDERED: DexAMETHasone SOD PHOS 4 MG/1ML SDV INJ ONE (13:47)
[2022-10-19] MEDS ORDERED: ACETAMINOPHEN 650 MG RECT SUPP PR ONE (13:55)
[2022-10-19] MEDS ORDERED: ACETAMINOPHEN 650 MG RECT SUPP PR PRN (14:00)
[2022-10-19] MEDS: PROPOFOL 100 ML IV SCH (16:00)
[2022-10-19] MEDS: REMDESIVIR 100mg 100 MG in SODIUM CHL 0.9% 230 ML IV SCH (19:34)
[2022-10-19] MEDS: fentaNYL Drip 2500mCg/250mlNS 250 ML IV SCH (20:51)
[2022-10-20] VITALS (29 sets, daily range): BP systolic 115–155; BP diastolic 53–84; PULSE 81–106; RESP 10–30; TEMP 98.4–98.9; O2SAT 93–98
[2022-10-20] MEDS: VALPROATE INJ 500 MG in SODIUM CHL 0.9% 100 ML IV SCH ×4 (02:32→21:30)
[2022-10-20] MEDS: D5W/SOD CHL 0.45% 1,000 ML IV SCH ×2 (02:33→16:06)
[2022-10-20] MEDS: NOREPINEPHRINE 8 MG/250ML KIT 250 ML IV SCH (03:47)
[2022-10-20 04:54] LABS: Alanine Aminotransferase 73 U/L (7-40); Alkaline Phosphatase 59 U/L (46-116); Anion Gap 6.7 (5-15); Calcium 8.5 mg/dL (8.7-10.4); Carbon Dioxide 26.3 mmol/L (20-30); Chloride 111 mmol/L (98-107); Potassium 3.3 mmol/L (3.5-5.1); Sodium 144 mmol/L (136-145)
[2022-10-20 04:55] LABS: Aspartate Aminotransferase 112 U/L (13-40)
[2022-10-20 04:56] LABS: Albumin 3.1 g/dL (3.2-4.8); Glucose 98 mg/dL (74-106)
[2022-10-20 04:58] LABS: Bilirubin, Total 0.4 mg/dL (0.2-1.0); Blood Urea Nitrogen < 5 mg/dL (9-23); Total Protein 5.7 g/dL (5.7-8.2)
[2022-10-20] MEDS: SODIUM CHL 0.9% IV SCH ×3 (05:23→20:57)
[2022-10-20] MEDS: PHENYTOIN DILANTIN IV SCH ×3 (05:23→20:57)
[2022-10-20] MEDS: ACCU-CHEK COMFORT CURVE STRIP VI SCH ×4 (05:26→23:32)
[2022-10-20] MEDS: InsuLIN REG 1unit/0.01ml Soln (100units/ml) SC SCH ×4 (05:43→23:32)
[2022-10-20] MEDS: DexAMETHasone SOD PHOS 10MG/1ML VIAL INJ IV SCH (10:37)
[2022-10-20] MEDS: PANTOPRAZOLE 40 MG/10 ML VIAL INJ IV SCH (10:37)
[2022-10-20] MEDS: CHOLECALCIFEROL (VITD3) 2,000 UNIT CAP/TAB PO SCH (10:39)
[2022-10-20] MEDS: ASCORBIC ACID 500 MG TAB PO SCH (10:39)
[2022-10-20] MEDS: ZINC SULFATE 220mg CAP or TAB PO SCH (10:40)
[2022-10-20] MEDS: levoFLOXacin 500MG 100 ML IV SCH (10:41)
[2022-10-20] MEDS: REMDESIVIR 100mg 100 MG in SODIUM CHL 0.9% 230 ML IV SCH (15:59)
[2022-10-20] MEDS: MIDAZOLAM DRIP 50 mg/50mL 50 ML IV SCH (17:30)
[2022-10-20] MEDS: PROPOFOL 100 ML IV SCH (19:06)
[2022-10-21] VITALS (11 sets, daily range): BP systolic 138–155; BP diastolic 76–84; PULSE 40–83; RESP 16–21; TEMP 97.8–99; O2SAT 94–100
[2022-10-21] MEDS: VALPROATE INJ 500 MG in SODIUM CHL 0.9% 100 ML IV SCH ×3 (03:00→18:22)
[2022-10-21] MEDS: D5W/SOD CHL 0.45% 1,000 ML IV SCH (03:35)
[2022-10-21] MEDS: PHENYTOIN DILANTIN IV SCH ×3 (04:41→20:32)
[2022-10-21] MEDS: SODIUM CHL 0.9% IV SCH ×3 (04:41→20:32)
[2022-10-21] MEDS: InsuLIN REG 1unit/0.01ml Soln (100units/ml) SC SCH ×4 (05:25→23:38)
[2022-10-21] MEDS: ACCU-CHEK COMFORT CURVE STRIP VI SCH ×3 (05:25→23:38)
[2022-10-21 06:18] LABS: Alanine Aminotransferase 83 U/L (7-40); Albumin 3.3 g/dL (3.2-4.8); Alkaline Phosphatase 75 U/L (46-116); Anion Gap 6.7 (5-15); Aspartate Aminotransferase 126 U/L (13-40); BUN/Creatinine Ratio 9.4 (10.0-20.0); Blood Urea Nitrogen 5 mg/dL (9-23); Calcium 8.4 mg/dL (8.7-10.4); Carbon Dioxide 28.3 mmol/L (20-30); Chloride 109 mmol/L (98-107); Glucose 95 mg/dL (74-106); Potassium 3.1 mmol/L (3.5-5.1); Sodium 144 mmol/L (136-145)
[2022-10-21 06:19] LABS: Bilirubin, Total 0.4 mg/dL (0.2-1.0); Total Protein 6.1 g/dL (5.7-8.2)
[2022-10-21] MEDS: PANTOPRAZOLE 40 MG/10 ML VIAL INJ IV SCH (09:39)
[2022-10-21] MEDS: ENOXAPARIN SOD 40 MG/0.4 ML SYRINGE SC SCH (09:40)
[2022-10-21] MEDS: ZINC SULFATE 220mg CAP or TAB PO SCH (09:40)
[2022-10-21] MEDS: CHOLECALCIFEROL (VITD3) 2,000 UNIT CAP/TAB PO SCH (09:40)
[2022-10-21] MEDS: DexAMETHasone SOD PHOS 10MG/1ML VIAL INJ IV SCH (09:40)
[2022-10-21] MEDS: ASCORBIC ACID 500 MG TAB PO SCH (09:40)
[2022-10-21] MEDS ORDERED: POTASSIUM CHLORIDE 40 MEQ, LIDOCAINE 1% (LOCAL ANESTH.) 4 ML in SODIUM CHL 0.9% 250 ML IV ONE (12:15)
[2022-10-21] MEDS: levoFLOXacin 500MG 100 ML IV SCH (12:26)
[2022-10-21] MEDS ORDERED: POTASSIUM CHL 20MEQ/100ML 0 ML IV ONE (13:34)
[2022-10-21] MEDS: REMDESIVIR 100mg 100 MG in SODIUM CHL 0.9% 230 ML IV SCH (21:50)
[2022-10-22] VITALS (7 sets, daily range): BP systolic 146–150; BP diastolic 77–88; PULSE 40–83; RESP 17–20; TEMP 97.7–98.3; O2SAT 95–97
[2022-10-22] MEDS: VALPROATE INJ 500 MG in SODIUM CHL 0.9% 100 ML IV SCH ×3 (00:11→13:13)
[2022-10-22] MEDS: SODIUM CHL 0.9% IV SCH ×2 (04:58→13:00)
[2022-10-22] MEDS: PHENYTOIN DILANTIN IV SCH ×2 (04:58→13:00)
[2022-10-22] MEDS: InsuLIN REG 1unit/0.01ml Soln (100units/ml) SC SCH ×3 (05:22→18:19)
[2022-10-22] MEDS: ACCU-CHEK COMFORT CURVE STRIP VI SCH ×3 (05:22→17:45)
[2022-10-22 06:59] LABS: Basophils # (auto) 0 10 ^3/uL (0-0.2); Basophils % (auto) 0.3 % (0.0-2.0); Eosinophils # (auto) 0.1 10 ^3/uL (0-0.8); Eosinophils % (auto) 1.3 % (0.0-7.0); Hematocrit 38.5 % (36.0-46.0); Hemoglobin 13.2 g/dL (12.2-16.2); Lymphocytes # (auto) 2.9 10 ^3/uL (0.4-5.4); Lymphocytes % (auto) 46.7 % (10.0-50.0); Mean Corpuscular Hemoglobin 33.9 pg (28.0-32.0); Mean Corpuscular Hgb Conc. 34.2 g/dL (32.0-36.0); Mean Corpuscular Volume 99.2 fL (80.0-100.0); Monocytes # (auto) 0.8 10 ^3/uL (0-1.3); Monocytes % (auto) 12.5 % (0.0-12.0); Neutrophils # (auto) 2.4 10 ^3/uL (1.6-8.6); Neutrophils % (auto) 39.2 % (37.0-80.0); Nucleated Red Blood Cells % 0.1 %; Red Blood Cells 3.88 10^6/uL (4.0-5.20); Red Cell Distribution Width 12.4 % (11.8-14.3); White Blood Cell 6.2 10^3/uL (4.4-10.8)
[2022-10-22 07:11] LABS: Alanine Aminotransferase 88 U/L (7-40); Albumin 3.5 g/dL (3.2-4.8); Alkaline Phosphatase 70 U/L (46-116); Anion Gap 7.4 (5-15); Aspartate Aminotransferase 90 U/L (13-40); BUN/Creatinine Ratio 12.3 (10.0-20.0); Bilirubin, Total 0.5 mg/dL (0.2-1.0); Blood Urea Nitrogen 7 mg/dL (9-23); Calcium 8.8 mg/dL (8.5-10.1); Carbon Dioxide 26.6 mmol/L (20-30); Chloride 109 mmol/L (98-107); Glucose 100 mg/dL (74-106); Magnesium 1.7 mg/dL (1.6-2.6); Potassium 3.7 mmol/L (3.5-5.1); Sodium 143 mmol/L (136-145); Total Protein 6.5 g/dL (5.7-8.2)
[2022-10-22] MEDS ORDERED: QULIPTA 60 MG PO SCH (10:00)
[2022-10-22] MEDS: ENOXAPARIN SOD 40 MG/0.4 ML SYRINGE SC SCH (11:18)
[2022-10-22] MEDS: DexAMETHasone SOD PHOS 10MG/1ML VIAL INJ IV SCH (11:18)
[2022-10-22] MEDS: PANTOPRAZOLE 40 MG/10 ML VIAL INJ IV SCH (11:18)
[2022-10-22] MEDS: ASCORBIC ACID 500 MG TAB PO SCH (11:19)
[2022-10-22] MEDS: CHOLECALCIFEROL (VITD3) 2,000 UNIT CAP/TAB PO SCH (11:19)
[2022-10-22] MEDS: levoFLOXacin 500MG 100 ML IV SCH (11:19)
[2022-10-22] MEDS: ZINC SULFATE 220mg CAP or TAB PO SCH (11:19)
[2022-10-22] MEDS ORDERED: LEVO500T91 PO (13:21)
[2022-10-22] MEDS ORDERED: PHENYTOIN SODIUM 50 MG/ML 2ML VIAL IV SCH (15:00)
[2022-10-22] MEDS: REMDESIVIR 100mg 100 MG in SODIUM CHL 0.9% 230 ML IV SCH (16:12)
== END 2022-10-22 20:15 | disposition home or self-care (01) | DRG 720 ==
LOC: EDBD 17:17 → ER 17:17 → TELE 21:07 → ICU WEST 23:05 → TELE-CENTR 10-20 21:54
PROVIDERS: ADMIT Nurse Practitioner Family; ATTEND Nurse Practitioner Acute Care
PROC: 5A1945Z Respiratory Ventilation, 24-96 Consecutive Hours (ICD-10-PCS; principal; 2022-10-15)
PROC: 0BH17EZ Insertion of Endotracheal Airway into Trachea, Via Natural or Artificial Opening (ICD-10-PCS; 2022-10-15)
PROC: 4A023N7 Measurement of Cardiac Sampling and Pressure, Left Heart, Percutaneous Approach (ICD-10-PCS; 2022-10-16)
PROC: B211YZZ Fluoroscopy of Multiple Coronary Arteries using Other Contrast (ICD-10-PCS; 2022-10-16)
PROC: B215YZZ Fluoroscopy of Left Heart using Other Contrast (ICD-10-PCS; 2022-10-16)
PROC: 009U3ZZ Drainage of Spinal Canal, Percutaneous Approach (ICD-10-PCS; 2022-10-17)
PROC: 05HF33Z Insertion of Infusion Device into Left Cephalic Vein, Percutaneous Approach (ICD-10-PCS; 2022-10-19)
PROC: B54NZZA Ultrasonography of Left Upper Extremity Veins, Guidance (ICD-10-PCS; 2022-10-19)
PROC: XW033E5 Introduction of Remdesivir Anti-infective into Peripheral Vein, Percutaneous Approach, New Technology Group 5 (ICD-10-PCS; 2022-10-19)
DX: A41.9 Sepsis, unspecified organism (principal); J96.01 Acute respiratory failure with hypoxia; I21.A1 Myocardial infarction type 2; G40.401 Other generalized epilepsy and epileptic syndromes, not intractable, with status epilepticus; U07.1 COVID-19; Z23 Encounter for immunization; G43.909 Migraine, unspecified, not intractable, without status migrainosus; Z20.822 Contact with and (suspected) exposure to COVID-19; Z83.3 Family history of diabetes mellitus; Z82.49 Family history of ischemic heart disease and other diseases of the circulatory system; Z79.899 Other long term (current) drug therapy
CPT/HCPCS: 31500; 36415; 36600; 70450; 71045; 80048; 80053; 80061; 80164; 80184; 80185; 80307; 81001; 81025; 82140; 82542; 82805; 82945; 82962; 83036; 83605; 83690; 83735; 84157; 84443; 84484; 84702; 85025; 85610; 85730; 87040; 87070; 87077; 87081; 87186; 87205; 87804; 88108; 89051; 93005; 93306; 93458; 94002; 94003; 94640; 95819; 97110; 97116; 97163; 97530; 99152; 99291; C9113; G0378; J0330; J1100; J1815; J1956; J2001; J2250; J2543; J2704; J3480; Q9967

== ENCOUNTER 2023-11-05 17:50 | Inpatient (IN) | payer MEDICAID ==
[~2023-11-05] VITALS: Ht 165.1 cm; Wt 64.6 kg
[~2023-11-05 17:50] MED LIST changes: +PHEN1CAP38 PO; -PHEN1CAP60 PO
[2023-11-05 18:15] VITALS: PULSE 100; RESP 24; O2SAT 97
[2023-11-05] MEDS: LORazepam 2MG/ML-1ML VIAL ONE ×2 (18:23→19:01)
[2023-11-05] MEDS: LORazepam 2MG/ML-1ML VIAL IV ONE ×3 (18:28→18:57)
[2023-11-05] MEDS: levETIRAcetam 1000 mg/100ml 100 ML IV ONE (18:49)
[2023-11-05 19:11] LABS: Basophils # (auto) 0.1 10 ^3/uL (0-0.2); Basophils % (auto) 0.5 % (0.0-2.0); Eosinophils # (auto) 0 10 ^3/uL (0-0.8); Hemoglobin 14.6 g/dL (12.2-16.2); Nucleated Red Blood Cells % 0.1 %
[2023-11-05 19:12] LABS: Eosinophils % (auto) 0.1 % (0.0-7.0); Hematocrit 43.1 % (36.0-46.0); Lymphocytes # (auto) 3.8 10 ^3/uL (0.4-5.4); Lymphocytes % (auto) 36.5 % (10.0-50.0); Mean Corpuscular Hemoglobin 35.2 pg (28.0-32.0); Mean Corpuscular Volume 103.7 fL (80.0-100.0); Monocytes # (auto) 0.6 10 ^3/uL (0-1.3); Monocytes % (auto) 5.9 % (0.0-12.0); Neutrophils # (auto) 5.9 10 ^3/uL (1.6-8.6); Platelet Count (auto) 156 10^3/uL (140-450); Red Blood Cells 4.16 10^6/uL (4.0-5.20); Red Cell Distribution Width 12.3 % (11.8-14.3); White Blood Cell 10.4 10^3/uL (4.4-10.8)
[2023-11-05 19:24] LABS: Alanine Aminotransferase 56 U/L (7-40); Alkaline Phosphatase 89 U/L (46-116); Anion Gap 14 (5-15); Aspartate Aminotransferase 37 U/L (13-40); BUN/Creatinine Ratio 16.7 (10.0-20.0); Blood Urea Nitrogen 11 mg/dL (9-23); Calcium 8.4 mg/dL (8.7-10.4); Carbon Dioxide 18 mmol/L (20-30); Chloride 107 mmol/L (98-107); Glucose 113 mg/dL (74-106); Magnesium 1.9 mg/dL (1.6-2.6); Potassium 3.4 mmol/L (3.5-5.1); Sodium 139 mmol/L (136-145)
[2023-11-05 19:25] LABS: Albumin 4.1 g/dL (3.2-4.8); Bilirubin, Total 0.3 mg/dL (0.2-1.0); Creatine Kinase IFCC 106 U/L (34-145); Total Protein 7.1 g/dL (5.7-8.2)
[2023-11-05] MEDS: PROPOFOL 100 ML IV SCH (19:30)
[2023-11-05] MEDS: PROPOFOL 100 ML IV ONE (19:32)
[2023-11-05 19:36] VITALS: PULSE 110; RESP 27; O2SAT 100
[2023-11-05 19:46] LABS: Lactic Acid w/Reflex 8.1 mmol/L (0.4-2.0)
[2023-11-05] MEDS: SODIUM CHLORIDE 0.9% 1,000 ML IV ONE (20:00)
[2023-11-05] MEDS: MIDAZOLAM HCL 2MG/2ML 2ml VIAL (1mg/ml) IV ONE ×2 (20:30→21:15)
[2023-11-05 20:47] LABS: Base Excess -1.2 mmol/L (-2.0-3.0)
[2023-11-05] MEDS: PHENYTOIN SODIUM 50 MG/ML 2ML VIAL IV ONE (21:41)
[2023-11-05] MEDS: MAGNESIUM SULFATE 1GM/100ML 100 ML IV ONE (21:42)
[2023-11-05 22:41] LABS: Lactic Acid w/Reflex 2.7 mmol/L (0.4-2.0)
[2023-11-05] MEDS ORDERED: NITROGLYCERIN 0.4 MG SL TAB SL PRN (22:45)
[2023-11-05] MEDS ORDERED: MORPHINE SULFATE INJ 2 MG/ml SYRG IV PRN (22:45)
[2023-11-05 23:00] VITALS: BP 127/66; PULSE 83; RESP 19; O2SAT 99
[2023-11-05] MEDS: ACETAMINOPHEN 500 MG TAB PO ONE (23:12)
[2023-11-05 23:30] VITALS: BP 127/66; PULSE 83; RESP 19; O2SAT 100
[2023-11-05 23:49] LABS: Urine Bacteria MOD /hpf (None Seen); Urine Blood Negative /uL (Negative); Urine Clarity Clear (Clear); Urine Color Light-Yellow (Yellow); Urine Protein, UAD Negative (Negative); Urine Specific Gravity 1.013 (1.001-1.035); Urine Urobilinogen Normal (Negative); Urine WBC 3 /hpf (0 - 5)
[2023-11-06] VITALS (39 sets, daily range): BP systolic 88–156; BP diastolic 42–82; PULSE 57–86; RESP 16–67; TEMP 98.8–99.5; O2SAT 94–100
[2023-11-06] MEDS: SODIUM CHLORIDE 0.9% 1,000 ML IV SCH (00:02)
[2023-11-06] MEDS: cefTRIAXone 1GM/50ML D5W 50 ML IV ONE (00:03)
[2023-11-06] MEDS: POTASSIUM CHL 20MEQ/100ML 100 ML IV ONE (00:27)
[2023-11-06] MEDS: ENOXAPARIN SOD 100 MG/1 ML SYRINGE SC ONE (02:27)
[2023-11-06] MEDS: ACETAMINOPHEN 325 MG TAB PO PRN (02:34)
[2023-11-06 04:35] LABS: Eosinophils # (auto) 0 10 ^3/uL (0-0.8); Mean Corpuscular Volume 99.4 fL (80.0-100.0); Monocytes # (auto) 0.9 10 ^3/uL (0-1.3)
[2023-11-06 04:37] LABS: Basophils # (auto) 0 10 ^3/uL (0-0.2); Basophils % (auto) 0.3 % (0.0-2.0); Hematocrit 38.7 % (36.0-46.0); Hemoglobin 13.8 g/dL (12.2-16.2); Lymphocytes # (auto) 2.5 10 ^3/uL (0.4-5.4); Mean Corpuscular Hemoglobin 35.6 pg (28.0-32.0); Mean Corpuscular Hgb Conc. 35.8 g/dL (32.0-36.0); Monocytes % (auto) 6.4 % (0.0-12.0); Neutrophils # (auto) 11.3 10 ^3/uL (1.6-8.6); Neutrophils % (auto) 76.3 % (37.0-80.0); Platelet Count (auto) 160 10^3/uL (140-450); Red Blood Cells 3.89 10^6/uL (4.0-5.20); Red Cell Distribution Width 12.5 % (11.8-14.3); White Blood Cell 14.8 10^3/uL (4.4-10.8)
[2023-11-06 04:47] LABS: Alanine Aminotransferase 66 U/L (7-40); Albumin 3.8 g/dL (3.2-4.8); Alkaline Phosphatase 73 U/L (46-116); Anion Gap 9 (5-15); Aspartate Aminotransferase 52 U/L (13-40); Blood Urea Nitrogen 7 mg/dL (9-23); Calcium 8.8 mg/dL (8.7-10.4); Carbon Dioxide 22 mmol/L (20-30); Chloride 110 mmol/L (98-107); Glucose 131 mg/dL (74-106); Potassium 3.6 mmol/L (3.5-5.1); Sodium 141 mmol/L (136-145)
[2023-11-06 04:48] LABS: Bilirubin, Total 0.3 mg/dL (0.2-1.0); Total Protein 6.4 g/dL (5.7-8.2)
[2023-11-06] MEDS ORDERED: POTASSIUM CHLORIDE 40 MEQ in SOD CHL 0.45% 1,000 ML IV SCH (08:15)
[2023-11-06] MEDS: fentaNYL Drip 2500mCg/250mlNS 250 ML IV SCH (08:30)
[2023-11-06 08:34] LABS: Base Excess 1.1 mmol/L (-2.0-3.0)
[2023-11-06] MEDS ORDERED: PHENYTOIN SODIUM 50 MG/ML 2ML VIAL IV SCH (10:00)
[2023-11-06] MEDS: PHENYTOIN IV DILANTIN 500 MG in SODIUM CHL 0.9% 100 ML IV ONE (10:00)
[2023-11-06] MEDS: VALPROATE INJ 500 MG in SODIUM CHL 0.9% 100 ML IV SCH ×2 (10:00→18:34)
[2023-11-06] MEDS: PHENYTOIN SODIUM 50 MG/ML 2ML VIAL IV SCH (11:20)
[2023-11-06] MEDS: cefTRIAXone 1GM/50ML D5W 50 ML IV SCH (11:21)
[2023-11-06] MEDS: levETIRAcetam 500 mg/100ml 100 ML IV SCH (11:21)
[2023-11-06] MEDS: PIPERACILLIN-TAZOB 3.375GM 100 ML IV SCH (16:45)
[2023-11-06] MEDS ORDERED: LORazepam 2MG/ML-1ML VIAL IV PRN (17:30)
[2023-11-06 18:16] LABS: COVID19 ANTIGEN SOFIA FIA NEGATIVE (NEGATIVE); Rapid Influenza A Negative (Negative); Rapid Influenza B Negative (Negative)
[2023-11-07] VITALS (102 sets, daily range): BP systolic 94–168; BP diastolic 42–92; PULSE 58–107; RESP 10–30; TEMP 98.1–100.8; O2SAT 93–100
[2023-11-07 05:01] LABS: Alanine Aminotransferase 60 U/L (7-40); Albumin 3.9 g/dL (3.2-4.8); Alkaline Phosphatase 68 U/L (46-116); Anion Gap 8 (5-15); Aspartate Aminotransferase 36 U/L (13-40); BUN/Creatinine Ratio 9.1 (10.0-20.0); Bilirubin, Total 0.3 mg/dL (0.2-1.0); Blood Urea Nitrogen 6 mg/dL (9-23); Calcium 9.1 mg/dL (8.7-10.4); Carbon Dioxide 23 mmol/L (20-31); Chloride 115 mmol/L (98-107); Glucose 78 mg/dL (74-106); Magnesium 2.3 mg/dL (1.6-2.6); Potassium 3.9 mmol/L (3.5-5.1); Total Protein 6.5 g/dL (5.7-8.2)
[2023-11-07 05:22] LABS: Sodium 146 mmol/L (136-145)
[2023-11-07] MEDS: PANTOPRAZOLE 40 MG/10 ML VIAL INJ IV SCH (07:43)
[2023-11-07] MEDS: ENOXAPARIN SOD 40 MG/0.4 ML SYRINGE SC SCH (07:44)
[2023-11-07] MEDS ORDERED: LORazepam 2MG/ML-1ML VIAL IM ONE (10:45)
[2023-11-07 12:40] LABS: Base Excess -2.7 mmol/L (-2.0-3.0)
[2023-11-07] MEDS: ACETAMINOPHEN 650 MG RECT SUPP PR PRN (12:52)
[2023-11-07 12:53] LABS: Eosinophils # (auto) 0 10 ^3/uL (0-0.8); Eosinophils % (auto) 0.1 % (0.0-7.0); Hematocrit 44.6 % (36.0-46.0); Hemoglobin 15.2 g/dL (12.2-16.2)
[2023-11-07 12:54] LABS: Basophils # (auto) 0.1 10 ^3/uL (0-0.2); Basophils % (auto) 0.5 % (0.0-2.0); Lymphocytes # (auto) 2.9 10 ^3/uL (0.4-5.4); Lymphocytes % (auto) 22.2 % (10.0-50.0); Mean Corpuscular Hemoglobin 34.7 pg (28.0-32.0); Mean Corpuscular Volume 102.1 fL (80.0-100.0); Monocytes % (auto) 7.9 % (0.0-12.0); Neutrophils # (auto) 8.9 10 ^3/uL (1.6-8.6); Neutrophils % (auto) 69.3 % (37.0-80.0); Platelet Count (auto) 157 10^3/uL (140-450); Red Blood Cells 4.37 10^6/uL (4.0-5.20); Red Cell Distribution Width 12.8 % (11.8-14.3); White Blood Cell 12.9 10^3/uL (4.4-10.8)
[2023-11-07] MEDS: hydrALAZINE HCL 20 MG/ML VL IV PRN (15:49)
[2023-11-07] MEDS: ONDANSETRON HCL 4 MG/2 ML VIAL IV PRN (17:03)
[2023-11-08] VITALS (7 sets, daily range): BP systolic 121–147; BP diastolic 55–82; PULSE 78–110; RESP 17–21; TEMP 98–98.7; O2SAT 94–99
[2023-11-08 06:59] LABS: Basophils # (auto) 0 10 ^3/uL (0-0.2); Eosinophils # (auto) 0.1 10 ^3/uL (0-0.8); Neutrophils # (auto) 6.2 10 ^3/uL (1.6-8.6); Nucleated Red Blood Cells % 0.1 %
[2023-11-08 07:03] LABS: Basophils % (auto) 0.3 % (0.0-2.0); Eosinophils % (auto) 0.6 % (0.0-7.0); Hematocrit 39.6 % (36.0-46.0); Lymphocytes # (auto) 3.2 10 ^3/uL (0.4-5.4); Lymphocytes % (auto) 31.7 % (10.0-50.0); Mean Corpuscular Hemoglobin 35.1 pg (28.0-32.0); Mean Corpuscular Hgb Conc. 35.3 g/dL (32.0-36.0); Mean Corpuscular Volume 99.3 fL (80.0-100.0); Monocytes # (auto) 0.7 10 ^3/uL (0-1.3); Monocytes % (auto) 6.5 % (0.0-12.0); Neutrophils % (auto) 60.9 % (37.0-80.0); Platelet Count (auto) 160 10^3/uL (140-450); Red Blood Cells 3.99 10^6/uL (4.0-5.20); Red Cell Distribution Width 12.4 % (11.8-14.3); White Blood Cell 10.2 10^3/uL (4.4-10.8)
[2023-11-08 07:12] LABS: Alanine Aminotransferase 46 U/L (7-40); Alkaline Phosphatase 85 U/L (46-116); Anion Gap 14 (5-15); Aspartate Aminotransferase 28 U/L (13-40); BUN/Creatinine Ratio 11.7 (10.0-20.0); Bilirubin, Total 0.7 mg/dL (0.2-1.0); Blood Urea Nitrogen 7 mg/dL (9-23); Calcium 9.6 mg/dL (8.7-10.4); Carbon Dioxide 23 mmol/L (20-31); Chloride 111 mmol/L (98-107); Glucose 77 mg/dL (74-106); Potassium 3.2 mmol/L (3.5-5.1); Sodium 148 mmol/L (136-145)
[2023-11-08] MEDS ORDERED: PIPERACILLIN-TAZOB 3.375GM 100 ML IV SCH (22:00)
[2023-11-09] VITALS (7 sets, daily range): BP systolic 137–150; BP diastolic 67–78; PULSE 75–98; RESP 16–17; TEMP 97.2–98.5; O2SAT 95–97
[2023-11-09] MEDS: VALPROATE INJ 500 MG in SODIUM CHL 0.9% 100 ML IV SCH (03:05)
[2023-11-09] MEDS: PIPERACILLIN-TAZOB 3.375GM 100 ML IV SCH (06:02)
[2023-11-10] VITALS (9 sets, daily range): BP systolic 122–143; BP diastolic 60–81; PULSE 67–76; RESP 18–22; TEMP 97.8–98.4; O2SAT 94–97
[2023-11-10 07:42] LABS: Basophils # (auto) 0.1 10 ^3/uL (0-0.2); Eosinophils # (auto) 0.2 10 ^3/uL (0-0.8); Hemoglobin 14.2 g/dL (12.2-16.2); Lymphocytes # (auto) 3.6 10 ^3/uL (0.4-5.4); Mean Corpuscular Hemoglobin 35.3 pg (28.0-32.0); Monocytes # (auto) 0.4 10 ^3/uL (0-1.3); Red Cell Distribution Width 12.5 % (11.8-14.3); White Blood Cell 7.2 10^3/uL (4.4-10.8)
[2023-11-10 07:48] LABS: Eosinophils % (auto) 2.7 % (0.0-7.0); Hematocrit 40.7 % (36.0-46.0); Lymphocytes % (auto) 50.2 % (10.0-50.0); Mean Corpuscular Hgb Conc. 34.9 g/dL (32.0-36.0); Monocytes % (auto) 5.1 % (0.0-12.0); Nucleated Red Blood Cells % 0.1 %; Platelet Count (auto) 195 10^3/uL (140-450); Red Blood Cells 4.03 10^6/uL (4.0-5.20)
[2023-11-10 08:01] LABS: Alanine Aminotransferase 48 U/L (7-40); Albumin 4.1 g/dL (3.2-4.8); Alkaline Phosphatase 89 U/L (46-116); Anion Gap 11 (5-15); Aspartate Aminotransferase 39 U/L (13-40); BUN/Creatinine Ratio 11.7 (10.0-20.0); Blood Urea Nitrogen 7 mg/dL (9-23); Calcium 9.5 mg/dL (8.7-10.4); Carbon Dioxide 22 mmol/L (20-31); Chloride 111 mmol/L (98-107); Glucose 103 mg/dL (74-106); Magnesium 1.9 mg/dL (1.6-2.6); Potassium 4.1 mmol/L (3.5-5.1); Sodium 144 mmol/L (136-145); Total Protein 7.1 g/dL (5.7-8.2)
[2023-11-10 08:08] LABS: Bilirubin, Total 0.4 mg/dL (0.2-1.0)
[2023-11-10] MEDS: VALPROIC ACID 250 MG/5 ML ORAL SOLN PO SCH (17:57)
[2023-11-10] MEDS: levETIRAcetam 500 MG TAB PO SCH (22:08)
[2023-11-10] MEDS: PHENYTOIN SODIUM 100 MG CAP PO SCH (22:08)
[2023-11-11] VITALS (7 sets, daily range): BP systolic 133–153; BP diastolic 79–84; PULSE 70–84; RESP 16–20; TEMP 97.9–98.7; O2SAT 94–97
[2023-11-11 07:40] LABS: Chloride 108 mmol/L (98-107); Potassium 3.9 mmol/L (3.5-5.1); Sodium 143 mmol/L (136-145)
[2023-11-11 07:41] LABS: Anion Gap 10 (5-15); Calcium 9.8 mg/dL (8.7-10.4); Carbon Dioxide 25 mmol/L (20-31)
[2023-11-11 07:46] LABS: BUN/Creatinine Ratio 15.3 (10.0-20.0); Blood Urea Nitrogen 9 mg/dL (9-23); Glucose 102 mg/dL (74-106); Magnesium 2.1 mg/dL (1.6-2.6); Mean Corpuscular Hemoglobin 35.3 pg (28.0-32.0); Mean Corpuscular Volume 99.2 fL (80.0-100.0); White Blood Cell 7.1 10^3/uL (4.4-10.8)
[2023-11-11 07:49] LABS: Hematocrit 41.5 % (36.0-46.0); Hemoglobin 14.8 g/dL (12.2-16.2); Mean Corpuscular Hgb Conc. 35.6 g/dL (32.0-36.0); Platelet Count (auto) 190 10^3/uL (140-450); Red Blood Cells 4.18 10^6/uL (4.0-5.20); Red Cell Distribution Width 12.3 % (11.8-14.3)
[2023-11-11 08:08] LABS: Band Neutrophils % (manual) 0; Basophils % (manual) 0 (0.0-2.0); Blast Cells 0; Metamyelocytes % 0; Myelocytes % 0; Promyelocytes % 0; Reactive Lymphocytes 0
[2023-11-11] MEDS ORDERED: LEVE500T40 PO (09:16)
[2023-11-11] MEDS ORDERED: PHEN1CAP38 PO (09:16)
[2023-11-11] MEDS ORDERED: DIVA-91 PO (09:16)
[2023-11-11 10:59] LABS: Eosinophils % (manual) 3 (0-7); Lymphocytes % (manual) 53 (10.0-50.0); Monocytes % (manual) 4 (0-12); Platelet Estimate Adequate
== END 2023-11-11 17:05 | disposition home or self-care (01) | DRG 53 ==
LOC: ER 17:50 → EDBD 17:50 → OVERFLOW 22:49 → ICU WEST 11-06 17:15 → WEST WING 11-07 23:36
PROVIDERS: ADMIT Internal Medicine; ATTEND Internal Medicine
PROC: 5A1945Z Respiratory Ventilation, 24-96 Consecutive Hours (ICD-10-PCS; principal; 2023-11-05)
PROC: 0BH17EZ Insertion of Endotracheal Airway into Trachea, Via Natural or Artificial Opening (ICD-10-PCS; 2023-11-05)
PROC: 05HC33Z Insertion of Infusion Device into Left Basilic Vein, Percutaneous Approach (ICD-10-PCS; 2023-11-06)
PROC: B54NZZA Ultrasonography of Left Upper Extremity Veins, Guidance (ICD-10-PCS; 2023-11-06)
PROC: 5A1935Z Respiratory Ventilation, Less than 24 Consecutive Hours (ICD-10-PCS; 2023-11-07)
DX: G40.401 Other generalized epilepsy and epileptic syndromes, not intractable, with status epilepticus (principal); J96.01 Acute respiratory failure with hypoxia; J69.0 Pneumonitis due to inhalation of food and vomit; R65.11 Systemic inflammatory response syndrome (SIRS) of non-infectious origin with acute organ dysfunction; I21.A1 Myocardial infarction type 2; G93.41 Metabolic encephalopathy; N17.9 Acute kidney failure, unspecified; F79 Unspecified intellectual disabilities; F17.290 Nicotine dependence, other tobacco product, uncomplicated; G43.909 Migraine, unspecified, not intractable, without status migrainosus; Z20.822 Contact with and (suspected) exposure to COVID-19; E87.20 Acidosis, unspecified; R74.01 Elevation of levels of liver transaminase levels; Z86.73 Personal history of transient ischemic attack (TIA), and cerebral infarction without residual deficits; Z79.899 Other long term (current) drug therapy; Z82.49 Family history of ischemic heart disease and other diseases of the circulatory system; Z83.3 Family history of diabetes mellitus
CPT/HCPCS: 31500; 36415; 36600; 70450; 71045; 80048; 80053; 80185; 81001; 82140; 82550; 82805; 83605; 83735; 84484; 84702; 85007; 85025; 85027; 87040; 87070; 87081; 87205; 87426; 87804; 92610; 93005; 93306; 94002; 94003; 97110; 97116; 97163; G0378; J2250; J2405; J2470; J2543; J2704; J3480

== ENCOUNTER → 2024-01-01 | Outpatient (CLI) | payer MEDICAID ==
[~2024-01-01] MED LIST changes: +DIVA-91 PO; +LEVE500T40 PO
[2024-01-01 11:15] LABS: Triglycerides 91 mg/dL (< 150)
[2024-01-01 11:16] LABS: LDL Cholesterol 91 mg/dL (< 100); Phenytoin (Dilantin) 11.8 ug/mL (10-20)
[2024-01-01 11:17] LABS: Cholesterol 189 mg/dL (< 200); HDL Cholesterol 75 mg/dL (40-59)
== END | disposition home or self-care (01) ==
LOC: LAB 10:10
PROVIDERS: ATTEND Internal Medicine
DX: G40.919 Epilepsy, unspecified, intractable, without status epilepticus (principal)
CPT/HCPCS: 36415; 80061; 80164; 80185; 82542; 84439; 84443

== ENCOUNTER 2024-10-26 08:54 | Outpatient (CLI) | payer MEDICAID ==
[2024-10-26 09:59] LABS: Urine Protein, UAD TRACE (Negative)
[2024-10-26 10:11] LABS: Mean Corpuscular Hemoglobin 34.4 pg (28.0-32.0)
[2024-10-26 10:17] LABS: Hematocrit 44.9 % (36.0-46.0); Hemoglobin 15.5 g/dL (12.2-16.2); Mean Corpuscular Volume 99.6 fL (80.0-100.0)
[2024-10-26 10:22] LABS: Albumin 4.3 g/dL (3.2-4.8); Alkaline Phosphatase 67 U/L (46-116); Anion Gap 9 (5-15); BUN/Creatinine Ratio 18.6 (10.0-20.0); Bilirubin, Total 0.5 mg/dL (0.2-1.0); Blood Urea Nitrogen 11 mg/dL (9-23); Calcium 9.1 mg/dL (8.7-10.4); Carbon Dioxide 25 mmol/L (20-31); Cholesterol 167 mg/dL (< 200); Glucose 87 mg/dL (74-106); Potassium 5.0 mmol/L (3.5-5.1); Sodium 142 mmol/L (136-145); Total Protein 7.4 g/dL (5.7-8.2); Triglycerides 109 mg/dL (< 150)
[2024-10-26 10:28] LABS: Alanine Aminotransferase 50 U/L (7-40); Chloride 108 mmol/L (98-107); HDL Cholesterol 71 mg/dL (40-59)
[2024-10-26 11:28] LABS: Total Cells Counted 100.0 (100)
[2024-10-26 11:29] LABS: RBC Morphology Normal
== END 2024-10-26 17:00 | disposition home or self-care (01) ==
LOC: LAB 08:54
PROVIDERS: ATTEND Internal Medicine
DX: Z76.89 Persons encountering health services in other specified circumstances (principal)
CPT/HCPCS: 36415; 80053; 80061; 81001; 82274; 82306; 83036; 84443; 85007; 85027